=== PATIENT | female | born 2000 | race Asian ===

== ENCOUNTER → 2021-04-14 | Outpatient (CLI) | payer SELFPAY | LOC: COL.RAD 09:40 → EDBD 09:40 → COL.RAD 10:30 | DX: O35.9XX0 Maternal care for (suspected) fetal abnormality and damage, unspecified, not applicable or unspecified (principal); Z3A.00 Weeks of gestation of pregnancy not specified ==

== ENCOUNTER 2021-06-29 10:07 | Inpatient (IN) | payer MEDICAID ==
[~2021-06-29] VITALS: Ht 152.4 cm; Wt 67.3 kg
[2021-06-29] VITALS (39 sets, daily range): BP systolic 98–120; BP diastolic 55–84; PULSE 78–134; TEMP 97.8–99.2
[2021-06-29] MEDS ORDERED: PRENATAL (10:37)
--- NOTE | 2021-06-29 11:07 | NUR ---
1016 PATIENT HERE FOR COMPLAINTS OF LABOR SINCE MIDNIGHT. PATIENT SPEAKS NO CITIZEN OF [place], IS A [place]IST[place] REFUGEE HERE. INTERPRETOR ON PHONE FOR [employer]ANGUAGE. ASSESSMENT COMPLETED. EFM ON FHT 125 GOOD ACCELRATIONS NOTED. BABY VERY ACTIVE. CONTRACTIONS EVERY 6-8 MIN. PATIENT BREASTHS THROUGH EACH CONTRACTION. INSTRUCTED PATIENT WILL MONITOR FOR HOUR AND RECHECK.
--- NOTE | 2021-06-29 12:00 | NUR ---
CONSENTS REVIEWED WITH PT VIA PROFESSIONAL INTERPRETOR SERVICE ON SPEAKER PHONE. PT STATES SHE IS UNABLE TO WRITE HER NAME AND DOES NOT KNOW WHAT INITIALS ARE, BUT WILL DO HER BEST TO SIGN THE LINE. THIS NURSE AND TAE GOMEZ DUAL WITNESS PT'S VERBAL CONSENTS VIA PROFESSIONAL INTERPRETOR. PT AGREEABLE TO CURRENT POC AT THIS TIME. SISTER IN LAW REMAINS AT BEDSIDE, UNABLE TO SPEAK MICRONESIAN. WATER OFFERED TO BOTH PT AND FAMILY MEMBER, AND MEAL TRAY ORDERED FOR FAMILY MEMBER PER PT REQUEST. DENIES FURTHER NEEDS OR CONCERNS AT THIS TIME.
--- NOTE | 2021-06-29 12:13 | NUR ---
1115 DR HILARIO CALLED AND UPDATED. ORDERS TO ADMIT FOR LABOR. NICOLE INTERPRETOR ON THE PHONE TO EXPLAINED TO PATIENT THAT SHE IS STAYING TO HAVE BABY. WE WILL BE ADMITTING HER. PATIENT STATES SHE DOES NOT WANT A MALE DR IN ROOM. EXPLAINED THAT WE WILL NOT HAVE A FEMALE DR AVAILABLE TODAY FOR DELIVERY. PATIENT STATES WANTS A FEMALE NURSE TO DELIVER BABY THEN. EXPLAINED THAT THAT IS NOT A OPTION UNLESS DR. NOT AVAILABLE. IV STARTED IN LEF THAND. PATIENT TOLERATES WELL.
--- NOTE | 2021-06-29 12:15 | NUR ---
AT BEDSIDE DISCUSSING DECELERATION EVENTS VIA INTERPRETOR. DISCUSSES POTENTIAL FOR CSECTION IF DECELERATIONS BECOME MORE SEVERE OR UNABLE TO CORRECT WITH POSITION CHANGES AND OXYGEN. PT STATES SHE UNDERSTANDS EDUCATION VIA INTERPRETORY AND DENIES FURTHER QUESTIONS OR CONCERNS. CATEGORY 1 STRIP AT THIS TIME WITH ACCELERATIONS AND NO FURTHER DECELS.
--- NOTE | 2021-06-29 12:18 | NUR ---
1145 SROM FOR THICK MECONIUM AT THIS TIME. DR HILARIO UPDATED.
--- NOTE | 2021-06-29 12:20 | NUR ---
1200 REPORT GIVEN TO TOBI DIAZ RN TO ASSUME CARE AT THIS TIME. INTERPRETOR REMAINS ON LINE TO HELP WITH COMMUNICATION
[2021-06-29 12:24] LABS: BASO % 0.2 % (0.0-2.0); EOS # 0.2 K/mm3 (0.0-0.7); EOS % 1.2 % (0.0-4.0); GRAN # 9.5 K/mm3 (1.4-6.5); GRAN % 77.5 % (42.2-75.2); LYMPH # 1.8 K/mm3 (1.2-3.4); LYMPH % 14.9 % (20.0-51.0); MEAN CELL VOLUME 71 fl (80.0-100.0); MEAN CORPUSCULAR HGB CONC 31 g/dl (33.0-37.0); MONO # 0.7 K/mm3 (0.1-0.6); MONO % 5.5 % (1.7-9.3); PLATELET COUNT 247 K/mm3 (130-400); RED BLOOD COUNT 4.32 M/mm3 (4.10-5.30); REDCELL DISTRIBUTION WIDTH-CV 17.1 % (11.5-14.5)
[2021-06-29 12:27] LABS: HEMATOCRIT 30.6 % (37.0-47.0); HEMOGLOBIN 9.4 g/dl (12.5-16.0); MEAN CORPUSCULAR HEMOGLOBIN 22 pg (27-31)
--- NOTE | 2021-06-29 15:50 | NUR ---
PT UPDATE VIA PROFESSIONAL INTERPRETOR. PT UPDATED ON POC, EDUCATED ON USE OF PITOCIN TO HELP INCREASE THE FREQUENCY OF CONTRACTIONS. ALSO EDUCATED ON EPIDURAL PLACEMENT AND MEDICATION FOR PAIN CONTROL. PT STATES "IF IN TWO HOURS I HAVE NOT DELIVERED, I MAY GET AN EPIDURAL, I JUST FEAR THEM, BUT I AM HURTING BAD." THIS NURSE ACNKNOWLEDGES HER CHOICE AND EDUCATES HER TO JUST LET ME KNOW IF SHE EVER IS READY FOR EPIDURAL PLACEMENT. PT REFUSING PITOCIN AT THIS TIME. PT AFEBRILE, VITAL SIGNS STABLE, CONTRACTIONS 2.5-5 MINUTES IN FREQUENCY, FIRM WITH PALPATION. CATEGORY 1 STRIP ON EFM. PT DENIES FURTHER NEEDS AT THIS TIME. INTERPRETOR REMAINS ON PHONE AND PT ABLE TO DEMONSTRATE APPROPRIATE CALL LIGHT USE, CALL LIGHT WITHIN REACH UPON EXITING ROOM.
--- NOTE | 2021-06-29 17:39 | NUR ---
PT REQUESTING AN ESTIMATED TIME OF DELIVERY. THIS NURSE EDUCATES ON CONTRACTION PATTERN AND DILATION STATUS VIA PROFESSIONAL INTERPRETOR. SVE /-2. EDUCATED ON USE OF PITOCIN, PT REQUESTING TO BEGIN PIT AT THIS TIME TO "SPEED THINGS UP." NOTIFIED.
--- NOTE | 2021-06-29 19:20 | NUR ---
192- THIS RN AND MAYLIN BRUCE TO BEDSIDE TO DISCUSS EPIDURAL USING AUGER MACHINE OFFBEARER LINE AFTER PATIENT VOICED THROUGH AUGER MACHINE OFFBEARER THAT SHE WOULD LIKE TO HAVE AN EPIDURAL. AUGER MACHINE OFFBEARER NAME IS [place]DE[place] AND HER ID# [place] [id number]. THROUGH THE AUGER MACHINE OFFBEARER, THE STEAM FLATTENER DISCUSSED WHAT AN EPIDURAL IS, THE RISKS AND BENEFITS OF THIS PROCEDURE AND WHAT TO EXPECT THROUGHOUT THE PROCESS. THE AUGER MACHINE OFFBEARER TOLD THE PATIENT AND THE PATIENT VOICED SHE UNDERSTOOD AND THAT SHE DID WANT THE EPIDURAL AND THAT SHE WAS CONSENTING TO THE EPIDURAL THROUGH THE TRANLATOR LINE. 1930- THE PATIENT IS ACTING INCREASINGLY UNCOMFORTABLE AND IS BEARING DOWN WITH CONTRACTIONS. THIS RN ASKS THE PATIENT THROUGH THE TRANLATOR IF SHE CAN CHECK HER CERVIX TO WHICH THE PATIENT STATES YES. SVE IS 6-7/90/-1. STEAM FLATTENER STEPS OUT TO GET EPIDURAL PREP READY AND THIS RN HELPS PATIENT TO SITTING POSITION ON THE SIDE OF THE BED. THE AUGER MACHINE OFFBEARER HAS REMAINED ON THE LINE THE ENTIRE TIME TRANSLATING WHAT THIS RN SAYS TO THE PATIENT. 1933- MATERNAL O2 PLACED ON PATIENT FINGER. STEAM FLATTENER BACK IN THE ROOM AND PREPPING FOR EPIDURAL. 1938- SINGLE SHOT, SEE ANESTHESIA RECORD. 1940- TEST DOSE, SEE ANESTHESIA RECORD. 1944- PATIENT ASSISTED INTO WL POSITION ON THE BED AND THIS RN EXPLAINED TO PATIENT IT TAKES ABOUT 15-20 MINUTES FOR EPIDURAL TO TAKE FULL AFFECT. PATIENT VERBALIZED UNDERSTANDING THROUGH THE AUGER MACHINE OFFBEARER. CALL LIGHT WITHIN REACH. VITALS STABLE. PATIENT DENIES FURTHER NEEDS AT THIS TIME VIA AUGER MACHINE OFFBEARER.
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
--- NOTE | 2021-06-29 20:45 | NUR ---
2044- THIS RN TO BEDSIDE TO DISCUSS A SADLER CATHETER WITH THE PATIENT WITH THE HELP OF THE TRANSLATION LINE. PATIENT VERBALIZES UNDERSTANDING AND STATES THAT YES I CAN PLACE A SADLER CATHETER. 2046- SADLER CATHETER PLACED WITH NO DIFFICULTIES. PATIENT TOLERATED WELL. 2047- THIS RN ASKED THE PATIENT VIA TRANSLATION IF I CAN DO A CERVICAL EXAM TO WHICH THE PATIENT STATES YES. SVE ANTERIOR LIP. DISCUSSED THIS WITH PATIENT VIA FUR DRUMMER. 2049- CALLED PHYSICIAN WITH UPDATE, SEE PHYSICIAN NOTIFICATION.
--- NOTE | 2021-06-29 21:05 | NUR ---
2104- DR. HILARIO ON UNIT WATCHING STRIP. PATIENT VOICED VIA TRANSLATION THAT SHE DOES NOT WANT MEN IN THE ROOM UNTIL DELIVERY OF BABY. DR. HILARIO STAYS AT THE DESK WATCHING THE STRIP. PROVIDER STATED THAT HE WOULD HAVE ME PUSH WITH THE PATIENT UNTIL DELIVERY TO LIMIT THE AMOUNT OF TIME IN THE ROOM SO THE PATIENT IS NOT UNCOMFORTABLE WITH HIM BEING IN THE ROOM. 2119- THIS RN TO BEDSIDE FOR SVE CHECK WITH PATIENT'S PERMISSION VIA TRANSLATION. SVE COMPLETE AND 0 STATION. DISCUSSED THOROUGHLY WITH PATIENT USING TRANSLATION WHAT TO EXPECT WITH PUSHING AND THAT I WAS GOING TO GRAB A FEW THINGS FOR DELIVERY. PATIENT VERBALIZED UNDERSTANDING. SADLER REMOVED AT THIS TIME WITH 150 URINE OUTPUT NOTED. 2131- FIRST PUSH WITH PATIENT WITH HELP OF TRANSLATION. TRANLATOR STAYS ON THE LINE THE WHOLE TIME AND THIS RN CONTINUES TO PUSH WITH PATIENT WHEN CONTRACTIONS COME. 2139- Cata SETRELLA, RN TO BEDSIDE TO HELP WITH PUSHING AND HOLDING PATIENT LEGS. THIS RN CONTINUES PUSHING WITH PATIENT. 2220- THIS RN ASKED OTHER RN TO CHECK TEMPERATURE MATERNAL INTERNAL WAS FEELING A LITTLE WARM. TEMPERATURE 99.2 ORALLY. CONTINUES PUSHING WITH PATIENT. 2227- PATIENT PUSHES REALLY WELL AND IS ENCOURAGED. PATIENT PUSHES AGAIN AND HEAD DECENDS TO +3 STATION AND . PATIENT ENCOURAGED TO STOP PUSHING WHILE WAITING ON PROVIDER WHO IS OUTSIDE OF ROOM. PROVIDER CALLED TO COME IN THE ROOM FOR DELIVERY NOW. NURSERY STAFF NOTIFIED WELL. 2229-PATIENT CONTINUES PUSHING WHILE PROVIDER GETS READY AND HEAD IS DELIVERED ON PERINUEM. PROVIDER GETS GLOVES ON AND HELPS DELIVERY BODY. 2230- OF VIABLE FEMALE . INFANT PLACED ON MOTHERS ABDOMEN WHERE NURSERY NURSE ASSUMES CARE. CORD IS CLAMPED AND CUT. PROVIDER GIVES VERBAL ORDERS FOR CORD GASES DUE TO THICK MECONIUM AND MEC STAINED. CORD GASSES DRAWN AND SENT TO LAB. PITOCIN TURNED OFF AT THIS TIME. 2238- OF PLACENTA. MODERATE AMOUNT OF LOCHIA NOTED. PITOCIN TURNED ON PER PROTOCOL AT 333ML/HR. FUNDUS MASSAGED TO FIRM BY PROVIDER. PERINEUM INTACT. EBL NOTED TO BE 300 BY PROVIDER. 2245- PATIENT AND ROOM CLEANED UP AND PUT BACK TOGETHER. NEW CHUX, PERIPAD AND ICE PACK TO PERINEUM. FUNDUS FIRM, VITALS STABLE. RECOVERY STARTED. PLAN OF CARE DISCUSSED WITH PATIENT THROUGH MACHINIST MECHANIC. SHE VERBALIZES UNDERSTANDING WITH NO FURTHER QUESTIONS AT THIS TIME. CALL LIGHT WITHIN REACH.
[2021-06-30 00:15] VITALS: BP 98/59; PULSE 93
[2021-06-30 00:45] VITALS: BP 102/60; PULSE 93
[2021-06-30 02:30] VITALS: BP 97/49; PULSE 103; TEMP 98.2
[2021-06-30 06:18] LABS: HEMATOCRIT 27.5 % (37.0-47.0); HEMOGLOBIN 8.3 g/dl (12.5-16.0)
[2021-06-30 06:45] VITALS: BP 81/50; PULSE 80; TEMP 98
[2021-06-30] MEDS ORDERED: IBU600 MG PO (06:56)
--- NOTE | 2021-06-30 10:07 | NUR ---
Initial visit; Patient nodded and smiled when Dial Polisher introduced herself and wished patient well and congratulations for the of her daughter.
[2021-06-30 16:00] VITALS: BP 100/50; PULSE 88; TEMP 98.2
[2021-06-30 20:00] VITALS: BP 95/56; PULSE 74; TEMP 98.4
[2021-07-01 01:00] VITALS: BP 98/56; PULSE 72; TEMP 98.1
[2021-07-01 08:15] VITALS: BP 98/49; PULSE 68; TEMP 98.1
--- NOTE | 2021-07-01 10:10 | NUR ---
This RN reviewed discharge instructions with pt via professional mail reader. Pt has no questions and verbalizes that she understands her discharge instructions. This RN asks pt if she needs any resources such as a car seat, etc. 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 The car-seat will be here with her ride who is on his way. Pt is in good spirits and states she is ready to go home.
--- NOTE | 2021-07-01 11:40 | NUR ---
Written prescribtion was given to pt and put in pt's purple bag. Pt was told via documentation manager that she needs to take it a pharmacy to get it filled.
== END 2021-07-01 11:40 | disposition home or self-care (01) | DRG 807 ==
LOC: LDRO 10:07 → OB 11:22 → LDR 11:22 → OB 06-30 01:30
PROVIDERS: ADMIT Obstetrics & Gynecology
PROC: 10E0XZZ Delivery of Products of Conception, External Approach (ICD-10-PCS; principal; 2021-06-29)
DX: O48.0 Post-term pregnancy (principal); Z37.0 Single live birth; O99.344 Other mental disorders complicating childbirth; F41.9 Anxiety disorder, unspecified; F32.A Depression, unspecified; O77.0 Labor and delivery complicated by meconium in amniotic fluid; O99.02 Anemia complicating childbirth; D64.9 Anemia, unspecified; O64.0XX0 Obstructed labor due to incomplete rotation of fetal head, not applicable or unspecified; Z3A.41 41 weeks gestation of pregnancy
CPT/HCPCS: J2590; J7120